=== PATIENT | female | born 1995 | race Caucasian/White ===

== ENCOUNTER 2024-07-17 13:26 | Inpatient (IN) | payer SELFPAY, OTHER ==
[2024-07-17] VITALS (24 sets, daily range): BP systolic 93–132; BP diastolic 53–88; PULSE 76–105; RESP 14–20; TEMP 36.2–36.7; O2SAT 96–100; BMI 26.4
[2024-07-17] MEDS: Lactated Ringers 1,000 ML 50 ML IV (14:00)
[2024-07-17 14:25] LABS: Absolute Lymphocyte Count 2.32 X10^3/uL (0.83-4.51); Absolute Neutrophil Count 9.1 X10^3/uL (2.0-7.7); Basophil# 0.07 X10^3/uL; Basophil% 0.6 % (0-1); Eosinophil# 0.09 X10^3/uL; Eosinophils% 0.7 % (0-5); Hematocrit 42.8 % (37-47); Hemoglobin 13.9 g/dL (12.0-15.0); Lymphocyte # 2.32 X10^3/ul (0.83-4.51); Lymphocyte % 18.8 % (19-41); Mean Corp Hgb Conc 32.5 g/dL (32-36); Mean Corpuscular Hgb 28.5 pg (27.0-32.0); Mean Corpuscular Volume 87.7 fL (81-99); Mean Platelet Vol. 10.3 fl (6.2-12.0); Monocyte# 0.69 X10^3/uL; Monocyte% 5.6 % (0-10); NRBC Flagged by Analyzer 0 % (0-5); Neutrophil # 9.11 X10^3/uL (2.7-7.7); Platelet Count 231 K/mm3 (150-450); RBC Distribution Width CV 14.4 % (11.6-14.6); RBC Distribution Width SD 45.7 fl (35.1-43.9); Red Blood Count 4.88 M/mm3 (4.2-5.4); White Blood Count 12.3 K/mm3 (4.4-11.0)
[2024-07-17] MEDS: 0.9% Saline Lock 10 ML Syringe IV (14:59)
[2024-07-17 15:05] LABS: Syphilis Antibodies Non-reactive
[2024-07-17 15:06] LABS: Bedside Glucose 77 mg/dL (74-106)
[2024-07-17 15:27] LABS: HIV - WCH Non-Reactive (Nonreactive); Hepatitis C Antibody Non-Reactive (Nonreactive)
[2024-07-17] MEDS: Lactated Ringers 1,000 ML 999 ML IV (16:05)
[2024-07-17] MEDS: fentaNYL 100 MCG/2 ML Ampul IV (16:42)
[2024-07-17] MEDS: Acetaminophen 500 MG Tablet 1000 MG PO ×2 (17:00→22:30)
[2024-07-17] MEDS: Lactated Ringers 1,000 ML 150 ML IV (17:10)
[2024-07-17] MEDS: Sodium Citrate/Citric Acid 30 ML UDC PO (17:11)
[2024-07-17] MEDS: Cefazolin 2 GM in 0.9% Normal Saline (100mL Bag) 100 ML IV (17:24)
--- NOTE | 2024-07-17 17:24 | HP.PCM.OB_ITS ---
HPI - General General Date of Admission: 07/17/24 Date of Service: 07/17/24 HPI Narrative JENNIFER SCHNEIDER, is a 29 F who presents with contractions. Maternal Data Information Final JASON: 07/19/24 Gestational age: 39&5 PFSH PFSH Medical History depression Gestational diabetes Pre-eclampsia Home Medications ?Medication ?Instructions ?Recorded ?Last Taken ?Type aspirin 81 mg capsule 81 mg PO DAILY hx pre eclampsia 07/17/24 07/15/24 08:00 History prev. 81 mg Allergy/AdvReac Type Severity Reaction Status Date / Time No Known Allergies Allergy Verified 07/17/24 14:20 Surgical History (Updated 07/17/24 @ 17:[address] Deborah Cook MD) Previous section Social History Smoking Status: Never smoker History Elective abortions Hx Para 1 Spontaneous abortions Hx # Term Pregnancies Ectopic pregnancies Hx # Pregnancies Multiple births # of living children Vital Signs Vital Signs Vital Signs: 07/17/24 13:05 07/17/24 13:05 07/17/24 13:10 Pulse Rate 94 89 Blood Pressure BP Systolic BP Diastolic Pulse Ox 98 07/17/24 13:10 07/17/24 13:15 07/17/24 13:15 Pulse Rate 88 Blood Pressure BP Systolic BP Diastolic Pulse Ox 96 99 07/17/24 13:20 07/17/24 13:20 07/17/24 13:25 Pulse Rate 103 H 90 Blood Pressure BP Systolic BP Diastolic Pulse Ox 98 07/17/24 13:25 07/17/24 13:30 07/17/24 13:30 Pulse Rate 96 Blood Pressure BP Systolic BP Diastolic Pulse Ox 98 97 07/17/24 13:35 07/17/24 13:35 07/17/24 13:40 Pulse Rate 100 97 Blood Pressure BP Systolic BP Diastolic Pulse Ox 98 07/17/24 13:40 07/17/24 13:45 07/17/24 13:45 Pulse Rate 90 Blood Pressure BP Systolic BP Diastolic Pulse Ox 98 97 07/17/24 13:50 07/17/24 13:50 07/17/24 13:55 Pulse Rate 105 H 101 H Blood Pressure BP Systolic BP Diastolic Pulse Ox 97 07/17/24 13:55 07/17/24 14:17 07/17/24 14:17 Pulse Rate 97 Blood Pressure 132/88 H BP Systolic 132 BP Diastolic 88 Pulse Ox 98 07/17/24 14:18 07/17/24 14:18 Pulse Rate 98 Blood Pressure BP Systolic BP Diastolic Pulse Ox 98 Weight Weight: 153 lb 14.122 oz Body Mass Index (BMI) 26.4 Labs Labs Labs: Blood Type A NEGATIVE Antibody Screen POSITIVE H Hct 42.8 % (37-47) Hgb 13.9 g/dL (12.0-15.0) Syphilis Total Ab Non-reactive Hepatitis C Antibody Non-Reactive (Nonreactive) HIV 1&2 Antibody Non-Reactive (Nonreactive) Assessment & Plan (1) Previous section: COMMENT: @ 39&5 PLAN: Plan Admit to L&D MOD - R/B/A discussed by . Patient wishes to proceed with repeat c- section. Routine care
--- NOTE | 2024-07-17 17:32 | EX.PCM.OBRPT ---
Maternal Data Information Final JASON: 07/19/24 Gestational age: 39&5 Details Operative Information Date of Procedure: 07/17/24 Pre-Operative Diagnosis: (1) Prior section Post-Operative Diagnosis: Same Indications for : Repeat Elective Indications Narrative: The patient was taken to the operating room where spinal anesthesia was placed & found to be adequate. She was prepped and draped in the dorsal supine position with a leftward tilt. A Pfannenstiel skin incision was made approximately 2 cm above the symphysis pubis and carried through to the underlying fascia with the scalpel. The fascia was incised incised in the midline and extended laterally with the Ann scissors. The rectus muscles were in the midline and the peritoneum was entered carefully and bluntly. The peritoneal incision was stretched and the bladder blade was inserted. Vesicouterine peritoneum was tented up, incised & then bladder flap created gently. The uterine incision was made in a low transverse fashion with the scalpel and extended superiorly and inferiorly with blunt dissection. The 's head was brought to the incision in the flexed position and delivered without difficulty. The head was gently guided to allow delivery of the anterior and posterior shoulders. The body then delivered with fundal pressure in the standard fashion. The 3VC cord was clamped and cut in delayed fashion. The was handed off to the waiting graduate engineer. The placenta was delivered with fundal massage and gentle traction in the standard fashion. The uterus was exteriorized and cleared of clots and debris. The uterine incision was closed with #1 Vicryl suture in a running locked fashion. Monocryl suture was used in an imbricating fashion. 3 additional sutures of 3-0 vicryl were placed for excellent hemostasis. The incision was examined and was found to be hemostatic. The uterus was returned to the abdominal cavity. After irrigating Jeancarlos was placed over the uterine incision as some areas were denuded (but hemostatic). The rectus muscle was examined and any bleeding was Bovie cauterized. The fascia was closed with PDS suture in a running standard fashion. The subcutaneous tissue was examining and any bleeding was Bovie cauterized. The subcutaneous tissue was reapproximated with interrupted sutures. The skin was closed in a subcuticular fashion by the GROUND OPERATIONS CREW MEMBER while I was present in the labor & delivery unit. The remainder of the procedure was performed by me with assistance. All sponge, lap, and needle counts were correct. The patient was taken to her room for recovery in a stable condition. Classification: TATE Procedure Type: low transverse senior program manager #1: Chantal Hammer Type of Anesthesia: Spinal Antibiotic Given: Ancef 2 grams IV x1 Drain: Duron to straight drain Estimated Blood Loss: 700ml Fluids Replaced: 1200ml Procedure Start Time: 17:41 Procedure Stop Time: 18:13 Findings Description of Procedure: Normal maternal adnexa, uterus normal size with 3-4 small fibroids and 1 larger fundal fibroid Presentation: Positive for Vertex Amniotic Membrane Rupture Type: Artificial Amniotic Fluid Description: Clear Placenta Disposition: [facility] Cord Vessel Description: 3 Vessels Cord Entanglement: None Infant A Gender: Male (1 minute): 8 (5 minute): 9 Delayed Cord Clamping: Yes Complications Complications: none
[2024-07-17] MEDS: Oxytocin 15 Units/NS 250ml 15 UNITS/250 ML IV.SOLN 83 UNITS IV (18:29)
[2024-07-17] MEDS: Ketorolac 30 MG/ML Syringe IV (18:59)
[2024-07-17] MEDS: Ondansetron 4 MG/2 ML Vial IV (20:28)
[2024-07-17] MEDS: Lactated Ringers 1,000 ML 100 ML IV (23:09)
[2024-07-18] MEDS: Ketorolac 30 MG/ML Syringe IV ×3 (00:25→12:19)
[2024-07-18] MEDS: 0.9% Saline Lock 10 ML Syringe IV ×3 (00:25→12:18)
[2024-07-18 00:30] VITALS: BP 94/62; PULSE 92; RESP 16; TEMP 36.6; O2SAT 99
[2024-07-18 03:34] VITALS: BP 101/64; PULSE 87; RESP 16; TEMP 36.4; O2SAT 98
[2024-07-18 04:30] VITALS: PULSE 85; RESP 16; O2SAT 99
[2024-07-18] MEDS: Acetaminophen 500 MG Tablet 1000 MG PO ×4 (05:05→23:31)
[2024-07-18] MEDS: Enoxaparin 40 MG/0.4 ML Syringe SC (05:05)
[2024-07-18 05:23] LABS: Hematocrit 31.3 % (37-47); Hemoglobin 10.3 g/dL (12.0-15.0); Mean Corp Hgb Conc 32.9 g/dL (32-36); Mean Corpuscular Hgb 28.8 pg (27.0-32.0); Mean Corpuscular Volume 87.4 fL (81-99); Mean Platelet Vol. 9.9 fl (6.2-12.0); Platelet Count 149 K/mm3 (150-450); RBC Distribution Width CV 14.2 % (11.6-14.6); Red Blood Count 3.58 M/mm3 (4.2-5.4); White Blood Count 8.7 K/mm3 (4.4-11.0)
[2024-07-18 05:55] LABS: Bedside Glucose 75 mg/dL (74-106)
--- NOTE | 2024-07-18 07:14 | PN.OBGYN_ITS ---
Subjective Subjective Patient seen at bedside. Denies headache, vision changes, SOB or CP. Passing flatus. Patient has not been up to void on own to date. . Objective Data Objective Data Vital Signs: Vital Signs Temp Pulse Resp BP Pulse Ox O2 Del Method 97.6 F L 85 16 101/64 99 Room Air 07/18/24 03:34 07/18/24 04:30 07/18/24 04:30 07/18/24 03:34 07/18/24 04:30 07/18/24 04:30 Oxygen Delivery Method Room Air Weight: 153 lb 14.122 oz Body Mass Index (BMI) 26.4 Intake & Output: Intake and Output for Last 24 Hours 07/16/24 07/17/24 07/18/24 23:59 23:59 23:59 Intake Total 1490.83 / 1490.83 771.67 / 771.67 Output Total 825 / 825 300 / 300 Balance 665.83 / 665.83 471.67 / 471.67 Lab / Micro Data Attestation: I reviewed the patient's lab results. 07/18/24 05:15 Labs: Laboratory Results - last 24 hr 07/17/24 14:05: WBC 12.3 H, RBC 4.88, Hgb 13.9, Hct 42.8, MCV 87.7, MCH 28.5, MCHC 32.5, RDW Std Deviation 45.7 H, RDW Coeff of Toan 14.4, Plt Count 231, MPV 10.3, Immature Gran % (Auto) 0.300, Neut % (Auto) 74.0 H, Lymph % (Auto) 18.8 L, Simpson % (Auto) 5.6, Eos % (Auto) 0.7, Baso % (Auto) 0.6, Absolute Neuts (auto) 9.1 H, Absolute Lymphs (auto) 2.32, Nucleated RBC % 0, Syphilis Total Ab Non- reactive, Hepatitis C Antibody Non-Reactive, HIV 1&2 Antibody Non-Reactive, Blood Type Cancelled, Antibody Screen Cancelled 07/17/24 14:42: Blood Type A NEGATIVE, Antibody Screen POSITIVE H, Antibody Identification ANTI-D 07/17/24 14:47: POC Glucose 77 07/18/24 05:09: POC Glucose 75 09/20/24 05:15: WBC 8.7, RBC 3.58 L, Hgb 10.3 L, Hct 31.3 L, MCV 87.4, MCH 28.8, MCHC 32.9, RDW Std Deviation 45.0 H, RDW Coeff of Toan 14.2, Plt Count 149 L, MPV 9.9 ROS Eyes Eyes: Denies blurry vision, spots in vision or tunnel vision ENT HEENT: Denies dizziness or headache(s) Cardiovascular Cardiovascular: Reports systems reviewed and no addt'l complaints, except as documented, dizziness and dyspnea Respiratory/Chest Respiratory/Chest: Reports systems reviewed and no addt'l complaints, except as documented Gastrointestinal Gastrointestinal: Reports systems reviewed and no addt'l complaints, except as documented Genitourinary Genitourinary: Reports systems reviewed and no addt'l complaints, except as documented Neurologic Neurologic: Denies abnormal speech, dizziness, headache(s), syncope or vertigo Psychiatric Psychiatric: Reports systems reviewed and no addt'l complaints, except as documented Physical Exam Const alert and no apparent distress General Appearance: cooperative Orientation / Consciousness: awake, oriented to person and oriented to place Exam Limitations: no limitations HEENT normocephalic Eyes General Eye: normal appearance of both eyes Neck full ROM Chest Chest: symmetrical chest wall rise Resp normal respiratory effort, normal air movement and clear to auscultation bilaterally Auscultation: clear to auscultation bilaterally Cardio regular rate and regular rhythm GI normal to inspection, nondistended, normoactive bowel sounds Uterus Palpation: uterus fundus firm Extremity full ROM and no calf tenderness Skin no rashes or lesions noted Neuro oriented x3 Psych mental status grossly normal and activity/motor behavior normal Assessment & Plan (1) Status post delivery: (2) Care and examination of lactating mother: (3) depression: COMMENT: History of PPD PLAN: Plan PO Day 1 Repeat C/S Pain control Increase ambulation today support Anticipate discharge home tomorrow
[2024-07-18 08:19] VITALS: BP 97/64; PULSE 82; RESP 16; TEMP 36.3; O2SAT 97
[2024-07-18] MEDS: Senna/Docusate Sodium 1 Tablet PO (11:15)
[2024-07-18 12:00] VITALS: BP 104/63; PULSE 84; RESP 16; TEMP 36.3; O2SAT 99
--- NOTE | 2024-07-18 16:13 | CASEMGMT ---
Labor and Delivery Tape Edge Machine Operator Social work met with mother at bedside to assess for any needs or concerns. MOB has history of depression. Sw completed assessment which will be entered in full detail at later date. NO concerns addressed at this time. Okay for MOB and baby to be discharged when medically ready. Dana Shelby, REFERRAL AGENT, ROOMING HOUSE INSPECTOR
[2024-07-18] MEDS: Ibuprofen 600 MG Tablet PO (18:51)
[2024-07-18 20:10] VITALS: BP 105/70; PULSE 86; RESP 16; TEMP 36.7; O2SAT 97
[2024-07-19] MEDS: Ibuprofen 600 MG Tablet PO ×2 (01:20→08:11)
[2024-07-19 02:57] VITALS: BP 104/76; PULSE 85; RESP 16; O2SAT 97
[2024-07-19] MEDS: Acetaminophen 500 MG Tablet 1000 MG PO (05:24)
[2024-07-19] MEDS: Enoxaparin 40 MG/0.4 ML Syringe SC (05:24)
--- NOTE | 2024-07-19 07:32 | PCM.PN.OB ---
Subjective Subjective Doing well. No complaints. Ambulating and voiding well. Pain controlled. Breast feeding without difficulty Objective Data Objective Data Vital Signs: Vital Signs Temp Pulse Resp BP Pulse Ox O2 Del Method 98.1 F 85 16 104/76 97 Room Air 07/18/24 20:10 07/19/24 02:57 07/19/24 02:57 07/19/24 02:57 07/19/24 02:57 07/19/24 02:57 Oxygen Delivery Method Room Air Weight: 69.8 kg Body Mass Index (BMI) 26.4 Intake & Output: Intake and Output for Last 24 Hours 07/17/24 07/18/24 07/19/24 23:59 23:59 23:59 Intake Total 1490.83 / 1490.83 771.67 / 771.67 Output Total 825 / 825 1200 / 1200 Balance 665.83 / 665.83 -428.33 / -428.33 Lab / Micro Data 07/18/24 05:15 ROS Constitutional Constitutional: Denies fatigue, fever(s) or malaise Eyes Eyes: Denies change in vision ENT HEENT: Denies dizziness or headache(s) Cardiovascular Cardiovascular: Denies chest pain, dyspnea or lightheadedness Respiratory/Chest Respiratory/Chest: Denies cough or dyspnea Gastrointestinal Gastrointestinal: Denies change in bowel habits Genitourinary Genitourinary: Denies burning urination or genital lesions Integumentary Integumentary: Denies rash Neurologic Neurologic: Denies confusion, dizziness, headache(s), numbness or weakness Physical Exam Const alert General Appearance: cooperative GI GI Narrative: soft, moderate distention, fundus firm, appropriately tender. Abdominal bandage clean dry and intact Assessment & Plan (1) Status post delivery: (2) Previous section: COMMENT: @ 39&5 (3) depression: COMMENT: History of PPD PLAN: Plan Discharge home
--- NOTE | 2024-07-19 07:36 | PCM.DC.SUM ---
Providers Date of Admission: 07/17/24 Date of Discharge: 07/19/24 Primary Care Physician: JOCELIN Fairchild Reason For Visit: REPEAT Diagnosis Discharge Diagnosis (1) Status post delivery: Status: Acute Code(s): Z98.891 - History of uterine scar from previous surgery (2) Previous section: Status: Acute Code(s): Z98.891 - History of uterine scar from previous surgery (3) depression: Status: Acute Code(s): F53.0 - depression Plan Discharge home Hospital Course Operations section Procedures None Summary of Care Provided Minutes Spent on Discharge: 21 Hospital Course: Presented in active. Previous c/s for repeat. Uncomplicated delivery. Breast feeding on discharge Physical Exam Const alert General Appearance: cooperative GI GI Narrative: soft, moderate distention, fundus firm, appropriately tender. Abdominal bandage clean dry and intact Weight / BMI Weight Weight: 69.8 kg Body Mass Index (BMI) 26.4 ABG / Lab / Microbiology Data 07/18/24 05:15 D/C Instructions Discharge Diet: No restrictions May resume sexual activity in: 4-6 weeks Lifting Restrictions: 20 pounds Additional Activity Instructions: Nothing in the vagina for 4-6 weeks. You may return to work/school in 6 weeks. Call your doctor if your incision/area has: Continuous Slow Oozing, Sudden Increased Bleeding, Increased Pain/ Swelling, Increased Redness and Foul Smelling Discharge Call your doctor if you observe: Fever of 101 or Higher and Using more than 1 pad per hour (for 2 hours) Suture Line Care: Avoid Pulling/Pushing and Avoid Pinching/Bending Cleanse incision/area with: Keep Dressing Clean & Dry Please Follow Up With: Lila Das MD When: Call to make an appointment for an incision check in 1-2 [phone]. You will need a post check in 6 weeks. Meaningful Use Info Meaningful Use Meaningful Use Diagnoses (Choose all that apply): None applicable Ischemic Stroke Statin Dosing Therapy Reference: STATIN DOSE THERAPY REFERENCE: * Patients > 75 years receive moderate or high dose statin therapy. * Patients 75 years or YOUNGER should receive HIGH intensity statin dose unless contraindicated. You will be required to document reason for non-treatment if statin daily dose does not meet guidelines. HIGH DOSE STATIN THERAPY DAILY Atorvastatin > than or = to 40 mg Rosuvastatin > than or = to 20 mg Amlodipine + Atorvastatin > than or = to 2.5/40 mg Ezetimibe + Simvastatin 10/80 mg Simvastatin 80mg Discharge Plan Admission Admit Date/Time: 07/17/24 13:26 Primary Reason for Your Visit: labor Attending Provider: Deborah Cook Primary Care Provider: Lila Pacheco Discharge Orders/Prescriptions Prescriptions: Discontinued aspirin 81 mg capsule 81 mg PO DAILY Referrals / Follow Up: Lila Pacheco PA [Primary Care Provider] - Disposition Disposition (needs filled in before D/C Order can be placed): Home, Self Care
[2024-07-19 07:59] VITALS: BP 106/74; PULSE 89; RESP 16; TEMP 36.2; O2SAT 96
--- NOTE | 2024-07-21 12:37 | CASEMGMT ---
Social Work Assessment Labor and Delivery Unit Patient Address: [address] [place] [address] [address] [place] [address] Phone number: [phone] Date of Referral: 07/18/24 Time of Referral:? 829 Referred By: charge nurse Date of Intervention: ?07/18/24? Time of Intervention:? 1044 Reason for Referral:? history of depression Sw completed chart review and talked about maternal mental health history of depression. Sw presented to bedside and introduced self to mother of baby (MOB- Verónica) and father of baby (FOB- Donnie). Sw explained reason for sw involvement and completed psychosocial assessment. History obtained from: medical records, MOB and FOB Household composition: Currently residing in the family home is MOB, BREANNE, their older daughter (Belem- 2 y/o) and now baby when ready for discharge. Parents deny and issues or concerns with housing at this time. Patient's parent/guardian status:? ?Parents report that they have been together for 7 years after meeting each other in [place]. No concerns reported of domestic violence and intimate partner violence. Medical History: MARTINA is 29 year old female who is 5, para 1- now 2 following labor and delivery. MARTINA received routine care during with [facility]. MARTINA presented to hospital for scheduled repeat at 39 weeks gestation. Baby boy, named Sagar, was born on 07/17/24 weighing 7lb 5oz with apgars of 8 and 9 at one and five minutes of life, respectfully. MOB states that she is breast feeding but also open to using formula to supplement when needed. MOB states that baby will be followed by Dr. Krishna for pediatrics. Educational Status:? Both parents completed the 8th grade as is customary in [facility] culture. No concerns with reading, learning or comprehension. 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 MOB is a stay at home mom. Supplies:?? Parents have obtained all necessary baby supplies, including: car seat, safe sleep space, clothes, diapers and wipes. Childcare/Caregiver(s):? MOB will be the primary caregiver along with FOB when he is not working. MOB states that they also have a helper that will come stay with them for a little while to help them with and 2 year old. Transportation:?? Parents primary means of travel is horse and buggy, with the help of a road oiling truck driver when they have longer distances to go. Programs/Agencies Involved: Parents are not connected to any community agencies that help them financially. ??? Children Services/Legal Issues:?No history of children services involvement, no issues or concerns warranting referral to be made at this time. ?? Behavioral Health Issues: ??Mental Health History:FOB states that he has experienced anxiety, but has never been diagnosed with anxiety. MOB states that she has a history of anxiety and did experience depression following the delivery of her first baby. MOB is not connected to any mental health services or supports and is not prescribed any medication to help her manage her symptoms. ??? Substance Use History:?Parents deny substance use prior to and during . ? Family History:??Parents deny family history of substance use or significant mental health diagnoses. ??? Drug Screens: ??No drug screens observed during chart review. Family/Social Stressors:? Parents deny any issues, concerns or stressors at this time. Support Systems: Parents report that their biggest supports are maternal grandparents. Depression/Shaken Baby/Safe Sleeping:?Sara educated parents on signs and symptoms of baby blues and mood and anxiety disorders. MOB states that if she were to struggle with her mental health during this period FOB would be able to recognize that and would know how to help and support her. Sara educated parents on shaken baby prevention and ABCs of safe sleep. Parents express understanding. ASSESSMENT:? MOB and baby admitted following labor and delivery. MOB and FOB both talkative and engaging throughout assessment. MOB with mental health history and depression. MOB able to recognize what her symptoms look like and has healthy and appropriate coping skills to utilize. MOB and FOB have obtained all necessary baby supplies and have supports in place. Parents observed to provide loving and appropriate hands on care to . FOB observed to be attentive to MOB and understanding of mental health warning signs. PLAN:? MOB and baby to be discharged when medically ready. ?No other services requested or indicated. Dana Shelby, TELLER HEAD, RIDER TICKET WORKER
== END 2024-07-19 10:30 | disposition home or self-care (01) | DRG 788 ==
LOC: WPOUT 13:26 → WP 13:26
PROVIDERS: Advanced Practice Midwife; Obstetrics & Gynecology; Admitting Provider Obstetrics & Gynecology; Referring Provider Obstetrics & Gynecology; Visit Provider Obstetrics & Gynecology
DX: O34.13 Maternal care for benign tumor of corpus uteri, third trimester (principal); D25.9 Leiomyoma of uterus, unspecified; F53.0 Postpartum depression; O99.345 Other mental disorders complicating the puerperium; O34.219 Maternal care for unspecified type scar from previous cesarean delivery; Z37.0 Single live birth; Z79.82 Long term (current) use of aspirin; Z3A.39 39 weeks gestation of pregnancy; Z87.59 Personal history of other complications of pregnancy, childbirth and the puerperium
CPT/HCPCS: 59025; 59050; 82962; 85025; 85027; 86703; 86780; 86803; 86850; 86870; 86900; 86901; 99221; J7120; A4216; G0378; J2405